=== PATIENT | male | born 1980 | race Hispanic/Latino ===

== ENCOUNTER 2018-12-29 18:29 | Inpatient (IN) ==
[2018-12-29] MEDS ORDERED: ZOFRAN ODT PO ONE (19:11)
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
[2018-12-29] MEDS ORDERED: ZOFRAN ODT ONE (19:22)
[2018-12-29 19:38] LABS: BASO# 0.05 X1000 (0.0-0.2); BASO% 0.3 % (0.0-0.8); HEMATOCRIT 47.2 % (42.0-52.0); HEMOGLOBIN 15.7 g/dL (14.0-18.0); IMM GRAN# 0.09 X1000 (0.0-0.04); IMM GRAN% 0.5 % (0.0-0.5); LYMPH% 3.1 % (20.5-51.1); MCHC 33.3 g/dL (33-37); MCV 93.1 FL (81-99); MONO# 1.01 X1000 (0.11-0.59); MONO% 5.2 % (1.7-9.3); MPV 10.7 FL (7.4-10.4); NEUT% 90.9 % (42.2-75.2); PLT 237 X1000 (130-400); RBC 5.07 XMIL (4.7-6.1); RDW 13.1 % (11.5-14.5); WBC 19.45 X1000 (4.8-10.8)
--- NOTE | 2018-12-29 19:50 | Diag Imaging Result Doc PS360 ---
FLAT/UPRIGHT ABD/1 VIEW CHEST - 12/29/2018 INDICATION: abd pain TECHNIQUE: COMPARISON: 07/24/2016 FINDINGS: The chest is clear. There is a nonobstructive bowel gas pattern. No free air or abnormal calcifications. IMPRESSION: Negative exam. Electronically signed by Bryant Robledo 12/29/2018 7:47 PM
[2018-12-29 20:18] LABS: AGAP 22; ALB/GLOB RATIO 1.4; ALBUMIN 5.4 g/dL (3.5-5.0); ALKALINE PHOSPHATASE 64 U/L (32-122); BUN 12 mg/dL (8-22); CALCIUM 9.8 mg/dL (8.8-10.2); CHLORIDE 94 mmol/L (98-107); COSMO 278; CREATININE 0.8 mg/dL (0.7-1.2); ESTIMATED GFR > 60; GLUCOSE 173 mg/dL (70-104); GOT 70 U/L (10-34); GPT 114 U/L (10-44); LIPASE 13 U/L (13-60); SODIUM 137 mmol/L (136-145); TCO2 21 mmol/L (25-35); TOTAL BILIRUBIN 0.76 mg/dL (0.20-1.00); TOTAL PROTEIN 9.3 g/dL (6.3-8.3)
[2018-12-29 20:38] LABS: URINE SOURCE CLEAN CATCH
[2018-12-29 20:42] LABS: BILIRUBIN URINE NEGATIVE (NEGATIVE); BLOOD URINE TRACE (NEGATIVE); COLOR YELLOW; GLUCOSE URINE 70 mg/dL (NEGATIVE); KETONE URINE 40 mg/dL (NEGATIVE); LEUKOCYTES URINE NEGATIVE (NEGATIVE); NITRITE URINE NEGATIVE (NEGATIVE); PROTEIN URINE 600 mg/dL (NEGATIVE); SP GRAVITY URINE 1.025; TURBIDITY URINE CLEAR (CLEAR); UR EPITHELIAL CELLS >10 /HPF (<10); URINE BACTERIA NEGATIVE /HPF; UROBILINOGEN URINE 2 mg/dL (NORMAL)
[2018-12-29] MEDS ORDERED: NS 1,000 ML IV ONE (20:52)
[2018-12-29 21:00] LABS: UR AMPHETAMINES QUAL PRESUMPTIVE POSITIVE (NONE DETECT); UR BARBITUATES QUAL NONE DETECTED (NONE DETECT); UR BENZODIAZEPIN QUAL NONE DETECTED (NONE DETECT); UR CANNABINOIDS QUAL PRESUMPTIVE POSITIVE (NONE DETECT); UR COCAINE QUAL NONE DETECTED (NONE DETECT); UR METHADONE QUAL NONE DETECTED (NONE DETECT); UR OPIATES QUAL NONE DETECTED (NONE DETECT); UR OXYCODONE QUAL NONE DETECTED (NONE DETECT); UR PCP QUAL NONE DETECTED (NONE DETECT)
[2018-12-29 21:00] LABS: CK INDEX 1.2 (0.0-2.5); CK-MB 3.67 ng/mL (0.0-5.0)
--- NOTE | 2018-12-29 22:04 | Diag Imaging Result Doc PS360 ---
CT ABD/PELVIS W/IV CONT ONLY - 12/29/2018 INDICATION: diffuse abd pain COMPARISON: None FINDINGS: The lung bases are clear and the heart size is normal. There is severe diffuse fatty change of the liver. The gallbladder, pancreas, spleen, and adrenals are normal. There is slight patchy hypoenhancement of the kidneys and system with pyelonephritis bilaterally. There is also moderate urinary bladder wall thickening suggesting cystitis. Prostate and rectum are normal. No bowel obstruction or inflammation. Bones are intact. IMPRESSION: 1. Cystitis. Bilateral pyelonephritis. 2. Severe hepatic steatosis. This exam was performed using automated exposure control, adjustment of mA or kV according to patient size, and/or use of iterative reconstruction technique Electronically signed by Bryant Robledo 12/29/2018 10:02 PM
[2018-12-29] MEDS ORDERED: ROCEPHIN 2 GM in NS 50 ML IV ONE (22:08)
[2018-12-29 22:59] LABS: HEMOGLOBIN A1C 5.2 % (4.8-6.0)
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
[2018-12-30] MEDS ORDERED: ZOFRAN IV PRN (00:21)
[2018-12-30] MEDS ORDERED: TYLENOL PO PRN (00:21)
[2018-12-30 01:24] LABS: AGAP 16; BUN 13 mg/dL (8-22); CALCIUM 9.1 mg/dL (8.8-10.2); CHLORIDE 99 mmol/L (98-107); COSMO 278; CREATININE 0.8 mg/dL (0.7-1.2); ESTIMATED GFR > 60; GLUCOSE 98 mg/dL (70-104); POTASSIUM 3.9 mmol/L (3.5-5.1); SODIUM 139 mmol/L (136-145); TCO2 24 mmol/L (25-35)
[2018-12-30] MEDS: NS 1,000 ML IV SCH ×2 (04:10→15:14)
[2018-12-30 05:30] LABS: BASO# 0.03 X1000 (0.0-0.2); BASO% 0.5 % (0.0-0.8); EOS# 0.21 X1000 (0.0-0.7); EOS% 3.8 % (0.0-10.0); HEMATOCRIT 32.6 % (42.0-52.0); HEMOGLOBIN 9.5 g/dL (14.0-18.0); IMM GRAN# 0.09 X1000 (0.0-0.04); IMM GRAN% 1.6 % (0.0-0.5); LYMPH# 1.43 X1000 (1.2-3.4); LYMPH% 25.8 % (20.5-51.1); MCH 29.6 PG (27-31); MCHC 29.1 g/dL (33-37); MCV 101.6 FL (81-99); MONO# 0.49 X1000 (0.11-0.59); MONO% 8.8 % (1.7-9.3); MPV 8.8 FL (7.4-10.4); NEUT% 59.5 % (42.2-75.2); PLT 240 X1000 (130-400); RBC 3.21 XMIL (4.7-6.1); RDW 14.8 % (11.5-14.5); WBC 5.55 X1000 (4.8-10.8)
[2018-12-30] MEDS ORDERED: FLU VACCINE IM ONE (13:00)
[2018-12-30] MEDS ORDERED: ATARAX PO PRN (14:45)
[2018-12-30] MEDS ORDERED: ROBAXIN PO PRN (14:45)
[2018-12-30] MEDS ORDERED: BENTYL PO PRN (14:45)
[2018-12-30] MEDS ORDERED: ATIVAN IV PRN (14:46)
[2018-12-30] MEDS: LIBRIUM PO SCH ×2 (15:14→19:49)
[2018-12-30] MEDS ORDERED: M.V.I.-12 10 ML, FOLIC ACID 1 MG, MAGNESIUM SULFATE 1 GM, THIAMINE 100 MG in NS 1,000 ML IV SCH (16:00)
[2018-12-30] MEDS ORDERED: ROCEPHIN 1 GM in NS 50 ML IV SCH (23:00)
[2018-12-31] MEDS: LIBRIUM PO SCH (02:43)
[2018-12-31 13:36] VITALS: BP 133/89
--- NOTE | 2019-01-01 06:37 | DISCHARGE SUMMARY ---
ADMISSION DATE: 12/30/2018 DISCHARGE DATE: 12/31/2018 ADMISSION DIAGNOSES: 1. Acute bilateral pyelonephritis. 2. Cystitis. DISCHARGE DIAGNOSES: 1. Acute bilateral pyelonephritis. 2. Cystitis. 3. Alcohol abuse with signs and symptoms of withdrawal. CONSULTATIONS: None. SURGERIES AND PROCEDURES: None. HOSPITAL COURSE: Mr. Artemio Padron is a 38-year-old male whose only medical history really is alcohol abuse, but comes in from residential due to having nausea, vomiting, and low-grade fever. He was found to have bilateral pyelonephritis and cystitis due to presenting symptoms. He was admitted for further treatment. He was initiated on IV fluids and antibiotics. On day 2 of staying, he started having signs and symptoms of alcohol withdrawal with tremors and agitation so he was started on a alcohol withdrawal protocol with a Librium taper, p.r.n. Ativan, and banana bag. Today, he is stable and will be discharged. DISCHARGE VITAL SIGNS: Temperature 98.1 degrees, heart rate 97, respiratory rate 18, blood pressure with 133/89, and O2 saturation 100% on room air. DISCHARGE LABORATORY DATA: White blood cells 5000, hemoglobin 9, hematocrit 32, and platelet count 240,000. Sodium 139, potassium 3.9, BUN 13, creatinine 0.8, glucose 98, and calcium 9.1. MICROBIOLOGY: Blood cultures negative. Urine culture negative. IMAGING: Abdominal x-ray with negative exam. Abdominal and pelvic CT with cystitis, bilateral pyelonephritis, and severe subhepatic steatosis. DISCHARGE MEDICATIONS: Levaquin 750 mg p.o. daily. DISCHARGE DIET: Regular. DISCHARGE ACTIVITY: As tolerated. PHYSICIAN FOLLOWUP: None. DISCHARGE INSTRUCTIONS: If symptoms return of fever, chills, nausea, vomiting, diarrhea, signs or symptoms of infection, seek medical attention. Take antibiotics as prescribed. DISCHARGE DISPOSITION: Home. Dictated by BECKY Trevino for Filipe Mckeon MD Addendum: patient seen and examined by myself. Agree with BECKY note. It reflects my assessment and plan. Patient is being discharged in stable condition. Will be seen by PCP in a week. cc: BECKY Trevino MD [facility]
== END 2018-12-31 17:46 | disposition home or self-care (01) | DRG 690 ==
LOC: ED 18:29 → SUATTDRO 12-30 00:07 → EDIPHOLD 12-30 00:07 → P.MEDSURG 12-30 08:50
PROVIDERS: ATTEND Internal Medicine